=== PATIENT | male | born 1985 | race Caucasian/White ===

== ENCOUNTER 2022-05-24 15:23 | Outpatient (CLI) | payer OTHER ==
[2022-05-24 16:31] VITALS: BP 138/82
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
== END 2022-05-24 15:24 | disposition home or self-care (01) ==
LOC: SC 15:23
PROVIDERS: ATTEND Nurse Practitioner Family
DX: R06.83 Snoring (principal); G47.8 Other sleep disorders; R06.81 Apnea, not elsewhere classified; G47.10 Hypersomnia, unspecified; Z87.891 Personal history of nicotine dependence; E66.3 Overweight; Z68.29 Body mass index [BMI] 29.0-29.9, adult
CPT/HCPCS: 99203; 99212

== ENCOUNTER 2022-06-01 20:27 | Outpatient (CLI) | payer OTHER | END 2022-06-01 20:28 | disposition home or self-care (01) | LOC: SC 20:27 | PROVIDERS: ATTEND Nurse Practitioner Family | DX: G47.33 Obstructive sleep apnea (adult) (pediatric) (principal) | CPT/HCPCS: 95810 ==

== ENCOUNTER 2022-06-15 15:44 | Outpatient (CLI) | payer OTHER ==
[2022-06-15 16:21] VITALS: BP 130/80
--- NOTE | 2022-06-15 16:21 | SLEEP CARE CONSULTATION ---
Information from patient questionnaire entered by Cynthia Finnegan. I have reviewed and concur with the information entered by Cynthia Finnegan. This document represents the service I personally performed and the decisions made by me, Inés Mcdaniels ARNP. History of Present Illness Service Date and Time: 06/15/2022 1544 Initial [place] Sleepiness Scale score: 14 (05/24/22) Current [place] Sleepiness Scale score: 14 (06/15/22) Additional HPI information: JUMANA SNEED returns for follow up and results of the recently performed polysomnography. I explained the pathophysiology behind obstructive sleep apnea. We then spent quite a bit of time discussing different treatment options. For mild obstructive sleep apnea, surgery and oral appliance are alternatives to nasal CPAP therapy but in moderate or severe cases, nasal CPAP is the most effective and reliable treatment. Because apnea is primarily in supine position, then positional management therapy could be effective. Methods discussed such as positioning with pillows to prevent supine sleep. I reviewed the impact of weight changes on sleep apnea and strongly recommended losing weight. After some discussion, the patient opted to go with the nasal CPAP therapy. Nasal autoCPAP set at 4-15 cmH20 will be ordered with rationale explained. A manual titration study will be ordered if unable to find optimal pressure with office adjustments. I explained how CPAP machine works and what to expect when using the machine. Using CPAP every night in order to get used to it was emphasized. Patient advised to put CPAP mask on before getting into bed so as not to fall asleep wit hout CPAP. To assist acclimation to CPAP use, it could also be used for a short time during day while reading or watching TV. The patient was instructed to call the CPAP supplier to discuss any mechanical problem that may occur. If the mask given is uncomfortable or is difficult to keep on through the night even with adjustment, contact the CPAP supplier as many will replace with another mask sty le if notified before 30 days. If snoring or perceives is not getting enough air or too much air from the machine, notify this office. Patient does not drink alcohol. Patient was cautioned about risks of drowsy driving until sleepiness symptoms resolve. Patient denies drowsy driving. Sleep Study - Results Type of Sleep Study: Polysomnography (COMPLETED 06/01/23) Prior sleep studies: Yes (2006 OR 2007 [facility] ) Polysomnography/Home Sleep Study results: IMPRESSION: The quality of the study is good. The patient had normal sleep efficiency. The sleep architecture was normal as well. Respiratory monitoring showed mild obstructive sleep apnea- hypopnea (AHI = 5.3) associated with frequent arousals, oxyhemoglobin desaturation and mild hypoxia (nathaly oxygen saturation of 88%). The respiratory events occurred almost exclusively during supine sleep (supine AHI = 9.1; non-supine = 3.53). Snore was light to moderate in intensity. There was no significant periodic leg movement of sleep. Cardiac rhythm was normal sinus rhythm without significant arrhythmia. No abnormal behavior (parasomnia) observed during the night. Allergies and Home Medications Drug allergies reviewed: Yes (NKDA) Home medication list reviewed: Yes (no changes) Review of Systems Review of systems same as previous: Yes (no changes) Physical Exam Vital signs obtained and entered by: CYNTHIA Jovel MA Blood Pressure: 130/80 (LEFT ARM) Cuff size: regular Heart Rate: 101 O2 Saturation: 96 Height: 6 ft Weight: 217 lb 6.4 oz Body Mass Index: 29.5 BMI Classification: Overweight Impression and Plan 1. Obstructive Sleep Apnea-Hypopnea Syndrome, mild, with lowest oxygen saturation of 88%. Obviously this is the cause of the patients symptoms of unrefreshed sleep, and excessive daytime sleepiness. Positive pressure therapy could benefit anxiety and mood disorder (Bipolar). As mentioned above, the patient will be started on nasal autoCPAP therapy with pressure set at 4-15 cmH2 O. Compliance guidelines also reviewed. A copy of compliance guidelines will be given for reference at check out. Because the apnea is more severe supine, I instructed to avoid sleeping supine using pillow positioning until able to start CPAP use. Patient would also like to explore an oral appliance, prescription completed. He will let us know if we will change to the oral appliance once he looks into it. 2. Overweight, unspecified. Currently patients BMI is 29.5. Obesity increases the risk of apnea, CPAP pressure requirements and overall health risks especially cardiovascular and diabetes. Thus patient is advised to lose weight. * Nasal auto CPAP therapy, pressure at 4-15 cm H2O. * Prescription for oral appliance * Attempt to lose weight. * Avoid alcohol consumption near bedtime. * Avoid supine sleep until using CPAP. * The patient is again cautioned about driving until sleepiness completely resolves. * Return one month after CPAP obtained. I will assess response to therapy and compliance at that time. Counseling Topics: Sleeping position, Weight loss health impact Visit Type: In Office Time Spent with Patient (minutes): 22 Provider Statement: I spent 100% of the Face to Face Visit with the patient with greater than 50% spent counseling the patient and coordination of care.
== END 2022-06-15 15:45 | disposition home or self-care (01) ==
LOC: SC 15:44
PROVIDERS: ATTEND Nurse Practitioner Family
DX: G47.33 Obstructive sleep apnea (adult) (pediatric) (principal); E66.3 Overweight; Z68.29 Body mass index [BMI] 29.0-29.9, adult
CPT/HCPCS: 99212; 99213

== ENCOUNTER 2023-05-31 13:23 | Outpatient (CLI) | payer OTHER ==
--- NOTE | 2023-05-31 13:55 | Sleep Patient Instructions ---
Sleep Center Visit Summary - Patient Visit Information Reason for Visit: First compliance visit for CPAP - Patient Instructions Additional Instructions: You were here for follow up of CPAP therapy. You will be continued on CPAP therapy with pressure at 8-12 cmH2O. Please let us know if the pressure change is uncomfortable and we can make further adjustments of the pressure. You should follow up with sleep care in 1-2 months. You may contact us sooner for any questions or concerns. - Clinic Information Contact: [facility] [address] [place] [address] [email or web address] T: [phone]
--- NOTE | 2023-05-31 13:57 | SLEEP CARE CONSULTATION ---
Information from patient questionnaire entered by Romina Finnegan. I have reviewed and concur with the information entered by Romina Finnegan. This document represents the service I personally performed and the decisions made by , Inés Mcdaniels ARNP. History of Present Illness Service Date and Time: 05/31/2023 1323 Previous diagnosis: Mild, Obstructive Sleep Apnea-Hypopnea Syndrome AHI: 5.3 (05/2023) Reason for follow up: first compliance Equipment type: CPAP (RESMED Airsense 10, s/u 03/2023; NEED MACHINE) Mask style: Nasal pillows ([place] II) Backup mask available: No (will keep old mask when replaced) Last cushion change: 2 weeks Prior sleep studies: Yes (2006 OR 2007 [facility] ) Type of Sleep Study: Polysomnography (COMPLETED 06/01/23) HPI additional information: JUMANA SNEED was diagnosed to have mild, AHI 5.3, obstructive sleep apnea- hypopnea syndrome and returned today for CPAP therapy first compliance follow- up. Sleep Study - Results Type of Sleep Study: Polysomnography (COMPLETED 06/01/23) Prior sleep studies: Yes (2006 OR 2007 [facility] ) CPAP Compliance Data - Data Reviewed with Patient Average duration of nightly device use: 7 hours 1 mins Compliance rate %: 83 (/30 days used) Current pressure setting (cmH2O): 4-15 (median 6, avg 9, max 10.6) Average residual AHI: 0.7 Central apnea: 0.1 Obstructive apnea: 0.5 Average large leak: 0.7 L/min Subjective Missed days of use due to: reports: travel ([facility]got [facility]) Patient concerns: denies: aerophagia, mask discomfort, air blowing in eyes, mask leak noise, condensation in mask/hose, nasal congestion, dry mouth, nose, throat, epistaxis Observed to snore while using device: No Current pressure setting perceived as: comfortable On therapy, patient: reports: sleeping better, awakening more refreshed, being more awake and alert during the day, more rested overall. denies: drowsiness while driving Initial [place] Sleepiness Scale score: 14 (05/24/22) Current [place] Sleepiness Scale score: 8 (05/31/23) Allergies and Home Medications Known drug allergies: No Drug allergies reviewed: Yes Home medication list reviewed: Yes (no changes) Allergy and home medication list: Allergies No Known Drug Allergies Allergy (Verified 05/30/23 11:07) Review of Systems Review of systems same as previous: Yes (NO CHANGE) Physical Exam Vital signs obtained and entered by: ROMINA Jovel MA Blood Pressure: 138/98 (RIGHT ARM) Cuff size: regular Heart Rate: 101 O2 Saturation: 98 Height: 6 ft Weight: 220 lb 9.6 oz Body Mass Index: 29.9 BMI Classification: Overweight Impression and Plan 1. Obstructive Sleep Apnea-Hypopnea Syndrome, mild, with good treatment compliance and good apnea control. On CPAP therapy, the patient has better sleep quality and is more rested overall. The patients pressure will be changed to autoCPAP 8-12 cmH20 to reflect pressure used. Patient advised to contact me if pressure change is uncomfortable so that it can be adjusted. Goals for apnea control discussed. Patient's apnea severity and rationale for treatment to reduce apnea, improve sleep quality and reduce cardiovascular and cerebrovascular events was reviewed. I also reviewed the benefit of consistent device use of CPAP for anxiety and mood disorder. 2. Overweight, unspecified. Currently patients BMI is 29.9. Obesity increases the risk of apnea, CPAP pressure requirements and overall health risks especially cardiovascular and diabetes. Thus patient is advised to lose weight. * Change auto CPAP pressure to 8-12 cmH2O * Notify me if snoring with mask or feeling that the pressure is too much or too little * Attempt to lose weight * Call this office if any problems using CPAP * Return for follow up in 1-2 months, or sooner if concerns arise Counseling Topics: Spare mask, Weight loss health impact Follow up with Sleep Care in: 1-2 months Visit Type: In Office Time Spent with Patient (minutes): 22 Provider Statement: I spent 100% of the Face to Face Visit with the patient with greater than 50% spent counseling the patient and coordination of care.
[2023-05-31 14:13] VITALS: BP 138/98; O2SAT 98
== END 2023-05-31 13:24 | disposition home or self-care (01) ==
LOC: SC 13:23
PROVIDERS: ATTEND Nurse Practitioner Family
DX: G47.33 Obstructive sleep apnea (adult) (pediatric) (principal); E66.3 Overweight; Z68.29 Body mass index [BMI] 29.0-29.9, adult
CPT/HCPCS: 99212; 99213

== ENCOUNTER 2023-10-03 12:44 | Outpatient (CLI) | payer OTHER ==
--- NOTE | 2023-10-03 13:07 | Sleep Patient Instructions ---
Sleep Center Visit Summary - Patient Visit Information Reason for Visit: 2-month follow-up - Patient Instructions Additional Instructions: You were here for follow up of CPAP therapy. You will be continued on CPAP therapy with pressure at 8-10 cmH2O. Please let us know if the pressure change is uncomfortable and we can make further adjustments of the pressure. 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 Call them if you do not get a call in next week. You should follow up with sleep care in 12 months. You may contact us sooner for any questions or concerns. - Clinic Information Contact: [facility] [address] [place] [address] [email or web address] T: [phone]
--- NOTE | 2023-10-03 13:12 | SLEEP CARE CONSULTATION ---
Information from patient questionnaire entered by Romina Finnegan. I have reviewed and concur with the information entered by Romina Finnegan. This document represents the service I personally performed and the decisions made by , Inés Mcdaniels ARNP. History of Present Illness Service Date and Time: 10/03/2023 1244 Previous diagnosis: Mild, Obstructive Sleep Apnea-Hypopnea Syndrome AHI: 5.3 Reason for follow up: other (2 MONTH F/U) Equipment type: CPAP (RESMED Airsense 10, s/u 03/2023, MACHINE NEEDED) Equipment obtained from: Other ([facility]) Mask style: Nasal pillows ([place] II) Backup mask available: Yes Last cushion change: 2 weeks Prior sleep studies: Yes (2006 OR 2007 [facility] ) Type of Sleep Study: Polysomnography (COMPLETED 06/01/23) HPI additional information: JUMANA SNEED was diagnosed to have mild, AHI 5.3, obstructive sleep apnea- hypopnea syndrome and returned today for CPAP therapy two month follow-up. Sleep Study - Results Type of Sleep Study: Polysomnography (COMPLETED 06/01/23) Prior sleep studies: Yes (2006 OR 2007 [facility] ) CPAP Compliance Data - Data Reviewed with Patient Average duration of nightly device use: 6 hours 31 minutes Compliance rate %: 92 (59/60 days used) Current pressure setting (cmH2O): 8-12 (median 9, avg 10.9) Average residual AHI: 0.7 Central apnea: 0 Obstructive apnea: 0.6 Hypopnea: 0 Average large leak: 0.1 L/min Subjective Missed days of use due to: reports: other (mask comes off/pulled off during sleep) Patient concerns: denies: aerophagia, mask discomfort, air blowing in eyes, mask leak noise, condensation in mask/hose, nasal congestion, dry mouth, nose, throat, epistaxis Current pressure setting perceived as: too high On therapy, patient: reports: sleeping better, awakening more refreshed, being more awake and alert during the day, more rested overall. denies: drowsiness while driving Initial [place] Sleepiness Scale score: 14 (05/24/22) Current [place] Sleepiness Scale score: 5 (10/03/23) Allergies and Home Medications Known drug allergies: No Drug allergies reviewed: Yes Home medication list reviewed: Yes (no changes) Allergy and home medication list: Allergies No Known Drug Allergies Allergy (Verified 10/01/23 09:08) Review of Systems Review of systems same as previous: Yes (NO CHANGE) Physical Exam Vital signs obtained and entered by: ROMINA Jovel MA Blood Pressure: 135/85 (RIGHT ARM) Cuff size: long Heart Rate: 95 O2 Saturation: 95 Height: 6 ft Weight: 230 lb 3.2 oz Body Mass Index: 31.2 BMI Classification: Obese Impression and Plan 1. Obstructive Sleep Apnea-Hypopnea Syndrome, mild, with good treatment compliance and apnea control. On CPAP therapy, the patient has better sleep quality and is more rested overall. He has felt like the pressure may be a little high and that is why he is taking the mask off his face at night. His residual AHI is at 0.7. The patients pressure will be changed to autoCPAP 8-10 cmH20 for patient comfort. Patient advised to contact me if pressure change is uncomfortable so that it can be adjusted. Goals for apnea control discussed. Patient's apnea severity and rationale for treatment to reduce apnea, improve sleep quality and reduce cardiovascular and cerebrovascular events was reviewed. I also reviewed the benefit of consistent device use of CPAP for anxiety, mood disorder. He is going on deployment for about 6-8 months and would like to get enough supplies to take with him. I will add a deployment supply kit for 8 months to his prescription today. 2. Obesity, unspecified. Currently patients BMI is 31.2. Obesity increases the risk of apnea, CPAP pressure requirements and overall health risks especially cardiovascular and diabetes. Thus patient is advised to lose weight. * Change auto CPAP pressure to 8-10 cmH2O * Deployment kit for 8 months, leaving in October * Notify me if snoring with mask or feeling that the pressure is too much or too little * Attempt to lose weight * Call this office if any problems using CPAP * Return for follow up in 12 months, or sooner if concerns arise Adjust device pressure to (cmH2O): 8-10 Counseling Topics: Spare mask, Weight loss health impact Prescriptions: Other (deployment supply kit) Follow up with Sleep Care in: 1 year Visit Type: In Office Time Spent with Patient (minutes): 21 Provider Statement: I spent 100% of the Face to Face Visit with the patient with greater than 50% spent counseling the patient and coordination of care.
[2023-10-03 13:14] VITALS: BP 135/85; O2SAT 95
== END 2023-10-03 12:45 | disposition home or self-care (01) ==
LOC: SC 12:44
PROVIDERS: ATTEND Nurse Practitioner Family
DX: G47.33 Obstructive sleep apnea (adult) (pediatric) (principal); E66.9 Obesity, unspecified; Z68.31 Body mass index [BMI] 31.0-31.9, adult
CPT/HCPCS: 99212; 99213